=== PATIENT | female | born 1955 | race Native Hawaiian/Other Pacific Islander ===

== ENCOUNTER 2020-01-01 13:01 | Outpatient (CLI) | payer OTHER | END 2020-01-01 19:24 | disposition home or self-care (01) | LOC: MAMMO 13:01 | DX: Z12.31 Encounter for screening mammogram for malignant neoplasm of breast (principal) ==

== ENCOUNTER 2020-09-03 11:07 | Outpatient (CLI) | payer OTHER | END 2020-09-03 19:05 | disposition home or self-care (01) | LOC: US 11:07 | DX: S80.11XA Contusion of right lower leg, initial encounter (principal) ==

== ENCOUNTER 2020-11-14 11:23 | Outpatient (CLI) | payer OTHER | END 2020-11-14 20:45 | disposition home or self-care (01) | LOC: LABW 11:23 | PROVIDERS: ATTEND Internal Medicine | DX: N39.0 Urinary tract infection, site not specified (principal) | CPT/HCPCS: 87086; 87088 ==

== ENCOUNTER 2020-11-27 14:12 | Outpatient (CLI) | payer OTHER | END 2020-11-27 21:58 | disposition home or self-care (01) | LOC: RAD 14:12 | PROVIDERS: ATTEND Internal Medicine | DX: M54.5 Low back pain (principal) ==

== ENCOUNTER 2022-08-27 14:06 | Outpatient (CLI) | payer OTHER, MEDICARE ==
[2022-08-27 14:27] LABS: PLATELET COUNT 207 K/uL (152-353)
[2022-08-27 14:47] LABS: POTASSIUM 4.2 mmol/L (3.6-5.2)
== END 2022-08-27 22:01 | disposition home or self-care (01) ==
LOC: LAB 14:06
PROVIDERS: ATTEND Internal Medicine
DX: E78.2 Mixed hyperlipidemia (principal)
CPT/HCPCS: 80053; 80061; 81002; 84439; 84443; 85027

== ENCOUNTER 2022-12-28 11:29 | Outpatient (CLI) | payer OTHER, MEDICARE | END 2022-12-28 20:48 | disposition home or self-care (01) | LOC: RAD 11:29 | PROVIDERS: ATTEND Internal Medicine | DX: M51.9 Unspecified thoracic, thoracolumbar and lumbosacral intervertebral disc disorder (principal); Z13.820 Encounter for screening for osteoporosis; N95.8 Other specified menopausal and perimenopausal disorders ==